=== PATIENT | male | born 1945 | race Caucasian/White ===

== ENCOUNTER 2020-12-26 18:18 | Inpatient (IN) | payer MEDICARE ==
[~2020-12-26] VITALS: Ht 188 cm; Wt 84.5 kg
--- NOTE | 2020-12-26 19:25 | NUR ---
PLACED 16F HARRIS CATHETER PER ORDERS, PATIENT TOLERATED WELL, FILLD CATHETER BAG UP COMPLETELY. ASKED CASH VAN SALESPERSON NURSE TO RECORD ON HER OUTPUT. CONTINUE WITH PLAN OF CARE
[2020-12-26 19:28] LABS: BASOPHILS 0.1 % (0-2); EOSINOPHILS 0.3 % (0-7); HEMATOCRIT 41.5 % (42.0-54.0); HEMOGLOBIN 13.8 g/dL (13.5-17.5); IMMATURE GRANULOCYTES 0.2 % (0-5); LYMPHOCYTE ABS# 1.28 10x3/uL (1.32-3.57); LYMPHOCYTES 8.4 % (15-50); MCH 30.4 pg (26.0-34.0); MCHC 33.3 g/dL (31.0-37.0); MCV 91.4 fL (80.0-100.0); MEAN PLATELET VOLUME 11.1 fL (7.4-10.4); MONOCYTES 13.2 % (2-11); NEUTROPHIL ABS# 11.91 10x3/uL (1.78-5.38); NEUTROPHILS 77.8 % (40-80); PLATELET COUNT 163 10x3/uL (130-400); RBC 4.54 10x6/uL (4.20-6.10); RDW 14.4 % (11.5-14.5); WBC 15.3 10x3/uL (4.8-10.8)
[2020-12-26 19:37] LABS: ANION GAP 14.2 mmol/L (8-16); CARBON DIOXIDE 24.8 mmol/L (21.0-32.0); CREATININE - SERUM 1.5 mg/dL (0.6-1.3)
[2020-12-26 20:00] VITALS: BP 110/72
[2020-12-27] VITALS: BP 92/61
[2020-12-27 02:28] VITALS: BP 110/72; Ht 188 cm; Wt 84.5 kg
[2020-12-27 04:00] VITALS: BP 105/66
--- NOTE | 2020-12-27 04:29 | NUR ---
ASSESSED AT THE BEGINNING OF THE SHIFT. PT IS ALERT AND ORIENTED, ABLE TO VERBALIZE NEEDS. BEFORE LEAVING THE DAY NURSE PLACED A HARRIS CATH AND IT WAS BLOODY URINE WITH A TOTAL OF THE FIRST COUPLE OF EMPTING AT 4,500 CC'S. HIS URINE NOW IS MUCH CLEARER AND HE IS FEELING NO PRESSURE. AT THE BEGINNING OF THE SHIFT A IV WAS STARTED WITH A 22 GAUGE TO THE LEFT FOREARM AND HE HAS FLUIDS ORDERED TO THIS ARM. HE HAS NOT REQUESTED ANY PAIN MEDS SO FAR.
--- NOTE | 2020-12-27 08:00 | NUR ---
ASSESSMENT PER FLOW SHEET. PATIENT IS WITHOUT DISTRESS.MONITOR FOR NEEDS.CALL LIGHT IN REACH
[2020-12-27 08:34] VITALS: BP 94/62
[2020-12-27] MEDS ORDERED: FLOMAX0.4 MG PO (09:48)
[2020-12-27 10:14] LABS: BASOPHILS 0.2 % (0-2); HEMATOCRIT 38.8 % (42.0-54.0); HEMOGLOBIN 13.2 g/dL (13.5-17.5); IMMATURE GRANULOCYTES 0.1 % (0-5); LYMPHOCYTE ABS# 1.43 10x3/uL (1.32-3.57); LYMPHOCYTES 17.7 % (15-50); MCH 30.9 pg (26.0-34.0); MCV 90.9 fL (80.0-100.0); MEAN PLATELET VOLUME 11.3 fL (7.4-10.4); MONOCYTES 13.3 % (2-11); NEUTROPHIL ABS# 5.47 10x3/uL (1.78-5.38); NEUTROPHILS 67.7 % (40-80); PLATELET COUNT 153 10x3/uL (130-400); RBC 4.27 10x6/uL (4.20-6.10); RDW 14.5 % (11.5-14.5)
[2020-12-27 10:17] LABS: WBC 8.1 10x3/uL (4.8-10.8)
[2020-12-27 10:25] LABS: ALBUMIN 2.9 g/dL (3.4-5.0); ALKALINE PHOSPHATASE 58 U/L (30-120); ALT (SGPT) 15 U/L (10-68); CALCIUM 8.3 mg/dL (8.5-10.1); CARBON DIOXIDE 26.8 mmol/L (21.0-32.0); CHLORIDE - SERUM 104 mmol/L (98-107); GLUCOSE 103 mg/dL (74-106); POTASSIUM - SERUM 3.7 mmol/L (3.5-5.1); PROTEIN - SERUM 6.5 g/dL (6.4-8.2); SODIUM 136 mmol/L (136-145); eGFR NON AFRICAN AMERICAN 78 mL/min (90-120)
[2020-12-27 10:30] LABS: CALC OSMOLALITY 272 mosm/kg (275-300); UREA NITROGEN 16 mg/dL (7-18)
--- NOTE | 2020-12-27 12:54 | NUR ---
URINE TO LAB.IV DCD WITH CATH TIP INTACT. HARRIS SECURED TO LEG BAG. DISCHARGE INSTRUCTIONS,STATES UNDERSTANDING
--- NOTE | 2020-12-27 12:56 | NUR ---
REFUSED WHEELCHAIR. LEFT UNIT AMBULATORY WITH FAMILY FOR TRANSPORT HOME.
[2020-12-27 13:20] LABS: BILIRUBIN NEGATIVE (NEGATIVE); KETONE NEGATIVE (NEGATIVE); NITRITE NEGATIVE (NEGATIVE); UROBILINOGEN NORMAL mg/dL (< 2); WHITE CELLS - URINE 0-5 HPF (0-1)
[2020-12-27 13:21] LABS: SQUAMOUS EPITHELIAL 0-5 HPF (0-4)
== END 2020-12-27 12:56 | disposition home or self-care (01) | DRG 728 ==
LOC: D.MS 18:18
PROVIDERS: Family Medicine; ADMIT Emergency Medicine; ATTEND Emergency Medicine
DX: N41.9 Inflammatory disease of prostate, unspecified (principal); R31.9 Hematuria, unspecified; N32.89 Other specified disorders of bladder; R33.9 Retention of urine, unspecified; W19.XXXA Unspecified fall, initial encounter; Y93.64 Activity, baseball